=== PATIENT | female | born 1940 | race Caucasian/White ===

== ENCOUNTER 2021-07-18 05:44 | Emergency (ER) | payer MEDICARE ==
[2021-07-18] MEDS ORDERED: SODIUM CHLORIDE 0.9% 50 ML IVPB ONE (06:45)
[2021-07-18] MEDS ORDERED: SOTROVIMAB (EUA) 500 MG in SODIUM CHLORIDE 0.9% 100 ML IVPB ONE (06:45)
--- NOTE | 2021-07-18 06:46 | XR ---
EXAMINATION TYPE: XR chest 2V DATE OF EXAM: 07/18/2021 COMPARISON: NONE HISTORY: Cough TECHNIQUE: 2 views FINDINGS: Heart is normal. Lungs are clear of infiltrate. There are small calcified granuloma left lo wer lobe. There are no hilar masses. The bony thorax is intact. IMPRESSION: No active cardiopulmonary disease. Normal heart.
--- NOTE | 2021-07-18 07:23 | ED ---
General Adult HPI - General Chief complaint: Upper Respiratory Infection Stated complaint: Covid Exposure Time Seen by Provider: 07/18/21 06:02 Source: patient, family, RN notes reviewed Mode of arrival: ambulatory Limitations: no limitations - History of Present Illness Initial comments: This 81-year-old female presents emergency Department with chief complaint of COVID-19. Patient's is positive and patient has taken her test Patient denies any chest pain states she's had mild cough congestion. Patient is here for monoclonal antibodies. Patient discharged in stable condition. - Related Data Allergies Allergy/AdvReac Type Severity Reaction Status Date / Time Penicillins Allergy Rash/Hives Verified 07/18/21 06:00 sulfamethoxazole Allergy Rash/Hives Verified 07/18/21 06:00 [From Bactrim] trimethoprim [From Bactrim] Allergy Rash/Hives Verified 07/18/21 06:00 Review of Systems ROS Statement: Those systems with pertinent positive or pertinent negative responses have been documented in the HPI. ROS Other: All systems not noted in ROS Statement are negative. Past Medical History Past Medical History: Diabetes Mellitus History of Any Multi-Drug Resistant Organisms: None Reported Past Surgical History: Cholecystectomy, Hernia Repair, Hysterectomy, Tonsillectomy Past Psychological History: No Psychological Hx Reported Smoking Status: Former smoker Past Alcohol Use History: None Reported Past Drug Use History: None Reported General Exam Limitations: no limitations General appearance: alert, in no apparent distress Head exam: Present: atraumatic, normocephalic, normal inspection Eye exam: Present: normal appearance, PERRL, EOMI. Absent: scleral icterus, conjunctival injection, periorbital swelling ENT exam: Present: normal exam, mucous membranes moist Neck exam: Present: normal inspection, full ROM. Absent: tenderness, meningismus, lymphadenopathy Respiratory exam: Present: normal lung sounds bilaterally. Absent: respiratory distress, wheezes, rales, rhonchi, stridor Cardiovascular Exam: Present: regular rate, normal rhythm, normal heart sounds. Absent: systolic murmur, diastolic murmur, rubs, gallop, clicks Course Vital Signs 07/18/21 05:55 Pulse Rate 89 Respiratory 20 Rate Blood Pressure 127/68 O2 Sat by Pulse 97 Oximetry Medical Decision Making - Medical Decision Making Patient will receive monoclonal antibodies and discharged in stable condition. Disposition Clinical Impression: COVID-19 Disposition: HOME SELF-CARE Condition: Stable Instructions (If sedation given, give patient instructions): Coronavirus Disease 2019 (COVID-19) Additional Instructions: Please return to the Emergency Department if symptoms worsen or any other concerns. Is patient prescribed a controlled substance at d/c from ED?: No Referrals: Spencer Martinez DO [Primary Care Provider] - 1-2 days Time of Disposition: 07:22
[2021-07-18 09:51] VITALS: BP 131/72; PULSE 72; RESP 18
== END 2021-07-18 09:00 | disposition home or self-care (01) ==
LOC: EC 05:44
DX: U07.1 COVID-19 (principal); E11.9 Type 2 diabetes mellitus without complications; Z87.891 Personal history of nicotine dependence; Z88.0 Allergy status to penicillin; Z88.1 Allergy status to other antibiotic agents
CPT/HCPCS: 71046; 99283; Q0247